=== PATIENT | female | born 2000 | race Caucasian/White ===

== ENCOUNTER 2024-04-08 22:14 | Emergency (ER) | payer BC, MEDICAID, SELFPAY ==
[2024-04-08 22:31] VITALS: BP 101/66; PULSE 80; RESP 16; TEMP 36.4; O2SAT 100; BMI 20.1
[2024-04-08 23:06] LABS: Bilirubin Urine Negative (Negative); Blood Urine Negative (Negative); Glucose Urine UA Negative (Normal); Ketones Urine Negative (Negative); Leukocyte Esterase Urine 1+ (Negative); Nitrate Urine Negative (Negative); Protein Urine Negative (Negative); Specific Gravity, Urine 1.005 (1.005-1.030); Urine Appearance Clear (CLEAR); Urine Color Yellow (Yellow); Urobilinogen Urine 0.2 mg/dL (Negative)
[2024-04-08 23:09] LABS: Bacteria Urine None Seen /hpf; Hyaline Casts Urine 0-4 /lpf; RBC Urine 0-2 /hpf (0-2); Squamous Epithelial Cell Urine 0-5 /hpf (0-5); WBC Urine 0-5 /hpf (0-5)
[2024-04-08 23:42] LABS: Covid PCR NEGATIVE (Negative); Influenza A NEGATIVE (Negative); Influenza B NEGATIVE (Negative); Respiratory Syncytial Virus Ce NEGATIVE (Negative)
[2024-04-08 23:54] LABS: Anion Gap 18.7 (5-19); Basophils # 0.1 10^3/uL (0.0-0.1); Basophils % 0.6 %; Blood Urea Nitrogen 9 mg/dL (6-20); Calcium 9.4 mg/dL (8.5-10.5); Carbon Dioxide 23 mmol/L (22-29); Chloride 103 mmol/L (98-107); Creatinine Clr Calc Pharmacy 162.3177; Eosinophils # 0.2 10^3/uL (0.0-0.8); Eosinophils % 1.8 %; Glomerular Filtration Rate 154.3 mL/min (90-130); Glucose 97 mg/dL (65-115); Lymphocytes # 2.8 10^3/uL (0.8-4.8); Lymphocytes % 34.7 %; Mean Corpuscular HGB Conc 33.5 g/dL (30-55); Mean Corpuscular Hemoglobin 28.6 pg (27-33); Mean Corpuscular Volume 85.5 fl (85-98); Mean Platelet Volume 9.4 fL (7.4-10.4); Monocytes # 0.4 10^3/uL (0.2-0.9); Monocytes % 5.4 %; Neutrophils # 4.66 10^3/uL (1.8-7.7); Neutrophils % 57.1 %; Nucleated Red Blood Cells % 0 %; Osmolality Calculated 291 mOsm/kg (285-295); Platelet Count 214 10^3/cmm (157-399); Potassium 3.7 mmol/L (3.5-5.1); Red Blood Count 4.68 10^6/uL (3.85-5.65); Red Cell Distribution Width 12.5 % (12.1-15.1); Sodium 141 mmol/L (136-145); White Blood Count 8.16 10^3/uL (3.29-11.43)
== END 2024-04-08 23:45 | disposition left against medical advice (07) ==
LOC: ER 22:32
PROVIDERS: Emergency Medicine; Emergency Provider Family Medicine; PCP Internal Medicine
DX: Z53.21 Procedure and treatment not carried out due to patient leaving prior to being seen by health care provider (principal)
CPT/HCPCS: 36415; 80048; 81001; 85025; 87637